=== PATIENT | male | born 1980 | race Caucasian/White ===

== ENCOUNTER → 2020-06-16 | Emergency (ER) | payer MEDICAID ==
[~2020-06-16] VITALS: Ht 182.9 cm; Wt 65.9 kg
[~2020-06-16] MED LIST: KETOROLAC TROMETHAMINE 30 MG/ML VIAL IM ONE
[2020-06-16 16:41] VITALS: BP 139/85
== END | disposition home or self-care (01) ==
LOC: EMS 13:43
DX: M25.531 Pain in right wrist (principal); R60.0 Localized edema; F32.9 Major depressive disorder, single episode, unspecified; F20.9 Schizophrenia, unspecified; F17.210 Nicotine dependence, cigarettes, uncomplicated; F12.90 Cannabis use, unspecified, uncomplicated
CPT/HCPCS: 73090; 73110; 96372; 99284; J1885